=== PATIENT | female | born 1970 | race Caucasian/White ===

== ENCOUNTER 2017-08-23 11:00 | Day surgery (SDC) | payer BC ==
[~2017-08-23 11:00] MED LIST: NALOXONE (0.4 MG/ML) INJ
[2017-08-23] MEDS ORDERED: SOD CHLORIDE 0.9% 1,000 ML IV (12:00)
[2017-08-23] MEDS ORDERED: CEFAZOLIN 2 GM/50 ML (PMX) 50 ML IVPB (12:00)
[2017-08-23 12:36] LABS: ADD MAN DIFF? NO
[2017-08-23 12:39] LABS: BASOPHILS % 0.5 % (0.0-2.0); EOSINOPHILS % 0.4 % (0.0-7.0); HEMATOCRIT 42.8 % (37.0-47.0); HEMOGLOBIN 14.6 g/dl (12.0-16.0); LYMPHOCYTES # 2.4 10^3/ul (0.8-2.9); LYMPHOCYTES % 32.8 % (15.0-51.0); MEAN CORPUSCULAR HEMOGLOBIN 29.8 pg (29.0-33.0); MEAN CORPUSCULAR HGB CONC 34.1 g/dl (32.0-37.0); MEAN CORPUSCULAR VOLUME 87.3 fl (82.0-101.0); MEAN PLATELET VOLUME 9.6 fl (7.4-10.4); MONOCYTE # 0.5 10^3/ul (0.3-0.9); MONOCYTES % 7.1 % (0.0-11.0); NEUTROPHIL # 4.3 10^3/ul (1.6-7.5); NEUTROPHILS % 58.9 % (39.0-77.0); PLATELET COUNT 339 10^3/UL (140-415); RED CELL DISTRIBUTION WIDTH 12.3 % (11.5-14.5)
[2017-08-23 12:39] LABS: WHITE BLOOD COUNT 7.3 10^3/ul (4.8-10.8)
[2017-08-23 12:59] LABS: INR 0.93; PROTIME 12.5 Sec (11.9-14.9)
[2017-08-23 13:00] LABS: PARTIAL THROMBOPLASTIN TIME 29.9 Sec (25.0-35.0)
[2017-08-23 13:21] LABS: ALANINE AMINOTRANSFERASE 20 IU/L (13-69); ALBUMIN 4.5 g/dl (3.3-4.9); ALBUMIN/GLOBULIN RATIO 1.45; ALKALINE PHOSPHATASE 86 IU/L (42-121); ANION GAP 17 (8-16); ASPARTATE AMINO TRANSFERASE 20 IU/L (15-46); BILIRUBIN,INDIRECT 1.1 mg/dl (0-1.1); BILIRUBIN,TOTAL 1.1 mg/dl (0.2-1.3); CARBON DIOXIDE 25 mmol/L (21-31); CHLORIDE 107 mmol/L (97-110); GLUCOSE 100 mg/dl (70-220); TOTAL PROTEIN 7.6 g/dl (6.1-8.1)
[2017-08-23 13:25] LABS: BLOOD UREA NITROGEN 14 mg/dl (7-20); CALCIUM 9.5 mg/dl (8.4-10.2); CREATININE 0.72 mg/dl (0.44-1.00); POTASSIUM 3.6 mmol/L (3.5-5.1); SODIUM 145 mmol/L (135-144)
[2017-08-23] MEDS ORDERED: PROPOFOL 20 ML (15:09)
[2017-08-23] MEDS ORDERED: FENTAnyl 50 MCG/ML VIAL (15:10)
[2017-08-23] MEDS ORDERED: MIDAZOLAM 1 MG/ML 2 ML INJ ×3 (15:10→15:42)
[2017-08-23] MEDS ORDERED: HYDROmorphONE (0.2 MG/ML) 10ML SYG IV ×3 (15:30)
[2017-08-23] MEDS ORDERED: ONDANSETRON 4 MG INJ IV (15:30)
[2017-08-23] MEDS ORDERED: METOCLOPRAMIDE 10 MG INJ IV (15:30)
[2017-08-23] MEDS ORDERED: FENTAnyl 50 MCG/ML VIAL IV ×3 (15:30)
[2017-08-23] MEDS ORDERED: EPHEDrine SULFATE 50 MG/5 ML SYG IV (15:30)
[2017-08-23] MEDS ORDERED: LABETALOL HCL 20MG INJ IV (15:30)
[2017-08-23] MEDS ORDERED: hydrALAzine 20 MG INJ IV (15:30)
[2017-08-23] MEDS ORDERED: MEPERIDINE 25 MG INJ IV (15:30)
[2017-08-23] MEDS ORDERED: DIPHENHYDRAMINE 50 MG INJ IV (15:30)
[2017-08-23] MEDS ORDERED: OXYCODONE/ACETAMINOPHEN (5/325) TAB PO ×2 (15:30)
[2017-08-23] MEDS ORDERED: DEXAMETHASONE 4 MG/ML 1 ML INJ (16:14)
[2017-08-23] MEDS ORDERED: ONDANSETRON 4 MG INJ (16:14)
[2017-08-23] MEDS ORDERED: METOCLOPRAMIDE 10 MG INJ (16:14)
[2017-08-23] MEDS ORDERED: KETOROLAC 30 MG INJ (16:14)
[2017-08-23] MEDS ORDERED: CEFAZOLIN 1 GM INJ (16:14)
[2017-08-23] MEDS: BUPIVACAINE 0.25% (MPF) 30 ML INJ (16:26)
[2017-08-23] MEDS ORDERED: HYDROCODONE/APAP (5/325) TAB PO (16:30)
== END 2017-08-23 18:12 | disposition home or self-care (01) ==
LOC: SDS 11:00
DX: D17.0 Benign lipomatous neoplasm of skin and subcutaneous tissue of head, face and neck (principal)
CPT/HCPCS: 14041; 80053; 85025; 85610; 85730; 88307